=== PATIENT | male | born 1945 | race Caucasian/White ===

== ENCOUNTER 2024-07-11 16:38 | Inpatient (IN) | payer MEDICARE, OTHER ==
[~2024-07-11] VITALS: Ht 167.6 cm; Wt 43.1 kg
[2024-07-11 17:26] LABS: BASOPHILS % (AUTO) 0.5 % (0.0-2.0); EOSINOPHILS # (AUTO) 0.2 K/uL (0.0-0.7); EOSINOPHILS % (AUTO) 2.8 % (0.0-6.0); HEMATOCRIT 34 % (39-51); HEMOGLOBIN 10.8 g/dL (13.5-17.5); LYMPHOCYTES # (AUTO) 0.5 K/uL (0.8-4.8); LYMPHOCYTES % (AUTO) 7.8 % (20.0-44.0); MEAN CORPUSCULAR HEMOGLOBIN 28 PG (26.0-33.0); MEAN CORPUSCULAR HGB CONC 32 g/dl (31.0-36.0); MEAN CORPUSCULAR VOLUME 86 fL (80-96); MONOCYTES # (AUTO) 0.7 K/uL (0.1-1.30); MONOCYTES % (AUTO) 11.8 % (2.0-12.0); NEUTROPHILS # (AUTO) 4.7 K/uL (1.8-8.9); NEUTROPHILS % (AUTO) 77.1 % (43.0-81.0); PLATELET COUNT (AUTO) 343 K/uL (150-450); RED BLOOD CELL COUNT(AUTO) 3.92 MIL/uL (4.5-6.0); RED CELL DISTRIBUTION WIDTH 15.8 % (11.5-15.0); WHITE BLOOD COUNT (AUTO) 6.2 K/uL (4.3-11.0)
[2024-07-11 17:33] LABS: CALCIUM, SERUM 8.9 mg/dL (8.5-10.1); CREATININE 0.7 mg/dL (0.6-1.3); POTASSIUM 4.3 mmol/L (3.5-5.1)
[2024-07-11] MEDS ORDERED: MORP15TA PO (18:36)
[2024-07-11] MEDS ORDERED: PRED5TAB PO (18:36)
[2024-07-11] MEDS ORDERED: DULO30CA52 PO (18:36)
[2024-07-11] MEDS ORDERED: FURO40TA5 PO (18:36)
[2024-07-11] MEDS ORDERED: DONE5TAB34 PO (18:36)
[2024-07-11] MEDS ORDERED: HEPA50008 SQ (18:36)
[2024-07-11] MEDS ORDERED: CLOP75TA15 PO (18:36)
[2024-07-11] MEDS ORDERED: NA P133E RC (18:36)
[2024-07-11] MEDS ORDERED: TRAM50TA2 PO (18:36)
[2024-07-11] MEDS ORDERED: OLOP2.5D6 LEFTEYE (18:36)
[2024-07-11] MEDS ORDERED: ATOR20TA PO (18:36)
[2024-07-11] MEDS ORDERED: AMIN30LI66 PO (18:36)
[2024-07-11] MEDS ORDERED: LUBI24CA5 PO (18:36)
[2024-07-11] MEDS ORDERED: FLUT1BLS IH (18:36)
[2024-07-11] MEDS ORDERED: ZINC220C6 PO (18:36)
[2024-07-11] MEDS ORDERED: MORP30TA PO (18:36)
[2024-07-11] MEDS ORDERED: ASCO500T10 PO (18:36)
[2024-07-11] MEDS ORDERED: ASPI-1169 PO (18:36)
[2024-07-11] MEDS ORDERED: POLY17PO4 PO (18:36)
[2024-07-11] MEDS ORDERED: NEBI5TAB8 PO (18:36)
[2024-07-11] MEDS ORDERED: HYDR-500 PO (18:36)
[2024-07-11] MEDS ORDERED: PANT40TA2 PO (18:36)
[2024-07-11] MEDS ORDERED: LACT1CAP7 PO (18:36)
[2024-07-11] MEDS ORDERED: MULT-213 PO (18:36)
[2024-07-11] MEDS ORDERED: SPIR25TA6 PO (18:36)
[2024-07-11] MEDS ORDERED: BISA5TAB10 PO (18:36)
[2024-07-11] MEDS ORDERED: IPRA3AMP23 IH (18:36)
[2024-07-11] MEDS ORDERED: ACET325T53 PO (18:36)
[2024-07-11] MEDS ORDERED: ERGO500093 PO (18:36)
[2024-07-11] MEDS ORDERED: CALC-261 PO (18:36)
[2024-07-11] MEDS ORDERED: ZINC56.713 TP (18:36)
[2024-07-11] MEDS ORDERED: methylPREDNISolone SOD SUCC 125 MG/2ML VIAL IV ONE (19:00)
[2024-07-11] MEDS ORDERED: methylPREDNISolone SOD SUCC 125 MG/2ML VIAL ONE (19:05)
[2024-07-11] MEDS ORDERED: methylPREDNISolone SOD SUCC 40 MG/ML VIAL ONE (19:10)
[2024-07-11] MEDS: methylPREDNISolone SOD SUCC 40 MG/ML VIAL IV ONE (19:14)
[2024-07-11] MEDS ORDERED: CEFTRIAXONE 1GM BAG (ER ONLY) 50 ML IV ONE (19:15)
[2024-07-11] MEDS: CEFTRIAXONE 1 G in IV D5W 50 ML IV ONE (19:20)
[2024-07-11 19:31] LABS: ABG BASE EXCESS 8.2 mmol/L (-2.0-3.0); ABG OXYGEN SATURATION 92.3 % (94.0-98.0); ABG PCO2 58.1 mmHg (35.0-48.0); ABG PH 7.393 (7.350-7.450); ABG PO2 66.3 mmHg (83.0-108.0); ABG TOTAL HEMOGLOBIN 10.8 G/dL (13.5-17.5); COHb 0.3 % (0.5-1.5); MetHb 0.1 % (0.0-1.5); O2Hb 91.9 % (94.0-97.0); SITE, ABG RIGHT RADIAL
[2024-07-11 20:02] LABS: LACTIC ACID 0.7 mmol/L (0.4-2.0)
[2024-07-11] MEDS ORDERED: MAGNESIUM HYDROXIDE 30 ML UDC PO PRN (21:30)
[2024-07-11] MEDS ORDERED: ONDANSETRON HCL/PF 4 MG/2 ML VIAL IVP PRN (21:30)
[2024-07-11] MEDS ORDERED: ACETAMINOPHEN 325 MG TABLET PO PRN (21:30)
[2024-07-11] MEDS ORDERED: Z GUARD REMEDY 4 OZ OINT TP PRN (21:30)
[2024-07-11 21:59] LABS: IRON, SERUM 33 ug/dl (50-175); TOTAL IRON BINDING CAPACITY 225 ug/dl (250-450)
[2024-07-11] MEDS ORDERED: hydrOXYzine 10 MG TABLET PO PRN (22:00)
[2024-07-11 22:12] LABS: FERRITIN 158 ng/mL (8-388)
[2024-07-11 22:20] VITALS: BP 150/67; TEMP 97.9; O2SAT 90
[2024-07-11] MEDS: DOXYCYCLINE HYCLATE (100 MG) 100 MG TABLET PO SCH (23:29)
[2024-07-11] MEDS: DONEPEZIL 5 MG TABLET PO SCH (23:29)
[2024-07-11] MEDS: ATORVASTATIN 10 MG TABLET PO SCH (23:29)
[2024-07-12] VITALS (14 sets, daily range): BP systolic 98–132; BP diastolic 54–75; TEMP 97.3–98.2; O2SAT 89–98
[2024-07-12] MEDS: ALBUTEROL FS 2.5 MG/0.5 ML VIAL.NEB NEB SCH (02:05)
[2024-07-12] MEDS: IPRATROPIUM NEB FS 0.5 MG/2.5 ML AMPUL.NEB NEB SCH (02:05)
[2024-07-12] MEDS: methylPREDNISolone SOD SUCC 40 MG/ML VIAL IV SCH (05:12)
[2024-07-12 07:50] LABS: BASOPHILS % (AUTO) 0.1 % (0.0-2.0); EOSINOPHILS % (AUTO) 0.1 % (0.0-6.0); HEMATOCRIT 33 % (39-51); HEMOGLOBIN 10.9 g/dL (13.5-17.5); LYMPHOCYTES # (AUTO) 0.2 K/uL (0.8-4.8); LYMPHOCYTES % (AUTO) 4.7 % (20.0-44.0); MEAN CORPUSCULAR HEMOGLOBIN 28 PG (26.0-33.0); MEAN CORPUSCULAR HGB CONC 33 g/dl (31.0-36.0); MEAN CORPUSCULAR VOLUME 85 fL (80-96); MONOCYTES # (AUTO) 0.1 K/uL (0.1-1.30); MONOCYTES % (AUTO) 2.3 % (2.0-12.0); NEUTROPHILS # (AUTO) 4.1 K/uL (1.8-8.9); NEUTROPHILS % (AUTO) 92.8 % (43.0-81.0); PLATELET COUNT (AUTO) 317 K/uL (150-450); RED BLOOD CELL COUNT(AUTO) 3.93 MIL/uL (4.5-6.0); RED CELL DISTRIBUTION WIDTH 15.7 % (11.5-15.0); WHITE BLOOD COUNT (AUTO) 4.4 K/uL (4.3-11.0)
[2024-07-12 08:50] LABS: CALCIUM, SERUM 8.6 mg/dL (8.5-10.1); CREATININE 0.7 mg/dL (0.6-1.3); PHOSPHORUS 3.7 mg/dL (2.5-4.9); POTASSIUM 3.9 mmol/L (3.5-5.1)
[2024-07-12] MEDS ORDERED: OLOPATADINE HCL LEFTEYE SCH (09:00)
[2024-07-12] MEDS ORDERED: Medication Not On Formulary EA (Lubiprostone (Amitiza) 24 MCG) PO SCH (09:00)
[2024-07-12] MEDS: BUDESONIDE RESPULE INH 0.5 MG/2 ML AMPUL.NEB NEB SCH (09:00)
[2024-07-12] MEDS: SPIRONOLACTONE 25 MG TABLET PO SCH (10:09)
[2024-07-12] MEDS: ASPIRIN 81 MG TAB.CHEW PO SCH (10:09)
[2024-07-12] MEDS: PANTOPRAZOLE 40 MG VIAL IV SCH (10:09)
[2024-07-12] MEDS: DULOXETINE HCL 30 MG CAPSULE.DR PO SCH (10:10)
[2024-07-12] MEDS: CALCIUM CARB 600MG /VIT D 1 EACH TABLET PO SCH (10:10)
[2024-07-12] MEDS: ACIDOPHILUS/BULGARICUS 1 EACH TAB.CHEW PO SCH (10:10)
[2024-07-12] MEDS: FUROSEMIDE 40 MG TABLET PO SCH (10:10)
[2024-07-12] MEDS: MULTIVIT W/MINERALS 1 TAB TABLET PO SCH (10:11)
[2024-07-12] MEDS: METOPROLOL TARTRATE 25 MG TABLET PO SCH (10:11)
[2024-07-12] MEDS: ASCORBIC ACID 500 MG TABLET PO SCH (10:12)
[2024-07-12] MEDS: ZINC SULFATE 220 MG CAPSULE PO SCH (10:12)
[2024-07-12] MEDS: BISACODYL (5 MG) 5 MG TABLET.DR PO PRN (10:15)
[2024-07-12] MEDS: HEPARIN SODIUM, PORCINE 5000 UNITS/1 ML VIAL SQ SCH (10:15)
[2024-07-12] MEDS: CLOPIDOGREL BISULFATE 75 MG TABLET PO SCH (10:15)
[2024-07-12] MEDS: TRAMADOL HCL 50 MG TABLET PO PRN (10:16)
[2024-07-12] MEDS: POLYETHYLENE GLYCOL 3350 17 GM POWD.PACK PO PRN (10:16)
[2024-07-12] MEDS: NA PHOS,M-B/NA PHOS,DI-BA 1 EA ENEMA RC PRN (10:16)
[2024-07-12] MEDS: CEFTRIAXONE 1 G in IV D5W 50 ML IV SCH (20:09)
[2024-07-13] VITALS (8 sets, daily range): BP systolic 107–122; BP diastolic 57–74; TEMP 97.5–98.6; O2SAT 91–99
[2024-07-13 07:04] LABS: BASOPHILS % (AUTO) 0.1 % (0.0-2.0); HEMATOCRIT 32 % (39-51); HEMOGLOBIN 10.4 g/dL (13.5-17.5); LYMPHOCYTES # (AUTO) 0.3 K/uL (0.8-4.8); LYMPHOCYTES % (AUTO) 3.7 % (20.0-44.0); MEAN CORPUSCULAR HEMOGLOBIN 27 PG (26.0-33.0); MEAN CORPUSCULAR HGB CONC 33 g/dl (31.0-36.0); MEAN CORPUSCULAR VOLUME 84 fL (80-96); MONOCYTES # (AUTO) 0.5 K/uL (0.1-1.30); MONOCYTES % (AUTO) 5.2 % (2.0-12.0); PLATELET COUNT (AUTO) 348 K/uL (150-450); RED BLOOD CELL COUNT(AUTO) 3.81 MIL/uL (4.5-6.0); RED CELL DISTRIBUTION WIDTH 15.5 % (11.5-15.0); WHITE BLOOD COUNT (AUTO) 8.8 K/uL (4.3-11.0)
[2024-07-13 07:20] LABS: CALCIUM, SERUM 8.7 mg/dL (8.5-10.1); CREATININE 0.6 mg/dL (0.6-1.3); POTASSIUM 3.8 mmol/L (3.5-5.1)
[2024-07-13] MEDS: PROSOURCE / PROSTAT (PYXIS) 30 ML UDC PO SCH (09:41)
[2024-07-13] MEDS: PANTOPRAZOLE 40 MG/PACK PACK PO SCH (09:49)
[2024-07-13] MEDS: IPRATROPIUM NEB FS 0.5 MG/2.5 ML AMPUL.NEB NEB SCH (13:30)
[2024-07-14] VITALS (10 sets, daily range): BP systolic 118–127; BP diastolic 57–74; TEMP 97.5–98.6; O2SAT 94–97
[2024-07-14 06:02] LABS: BASOPHILS % (AUTO) 0.1 % (0.0-2.0); HEMATOCRIT 34 % (39-51); LYMPHOCYTES # (AUTO) 0.3 K/uL (0.8-4.8); LYMPHOCYTES % (AUTO) 4.1 % (20.0-44.0); MEAN CORPUSCULAR HEMOGLOBIN 27 PG (26.0-33.0); MEAN CORPUSCULAR HGB CONC 33 g/dl (31.0-36.0); MEAN CORPUSCULAR VOLUME 84 fL (80-96); MONOCYTES # (AUTO) 0.3 K/uL (0.1-1.30); MONOCYTES % (AUTO) 4.3 % (2.0-12.0); NEUTROPHILS # (AUTO) 7.5 K/uL (1.8-8.9); NEUTROPHILS % (AUTO) 91.5 % (43.0-81.0); PLATELET COUNT (AUTO) 381 K/uL (150-450); RED BLOOD CELL COUNT(AUTO) 4.02 MIL/uL (4.5-6.0); RED CELL DISTRIBUTION WIDTH 15.9 % (11.5-15.0); WHITE BLOOD COUNT (AUTO) 8.2 K/uL (4.3-11.0)
[2024-07-14 06:23] LABS: CALCIUM, SERUM 9.1 mg/dL (8.5-10.1); CREATININE 0.6 mg/dL (0.6-1.3); POTASSIUM 4.1 mmol/L (3.5-5.1)
[2024-07-15] VITALS (12 sets, daily range): BP systolic 116–129; BP diastolic 65–77; TEMP 97.3–98.2; O2SAT 91–99
[2024-07-15 06:16] LABS: BASOPHILS % (AUTO) 0.1 % (0.0-2.0); HEMATOCRIT 34 % (39-51); HEMOGLOBIN 10.9 g/dL (13.5-17.5); LYMPHOCYTES # (AUTO) 0.2 K/uL (0.8-4.8); MEAN CORPUSCULAR HEMOGLOBIN 27 PG (26.0-33.0); MEAN CORPUSCULAR HGB CONC 32 g/dl (31.0-36.0); MEAN CORPUSCULAR VOLUME 84 fL (80-96); MONOCYTES # (AUTO) 0.4 K/uL (0.1-1.30); MONOCYTES % (AUTO) 3.5 % (2.0-12.0); NEUTROPHILS # (AUTO) 11.5 K/uL (1.8-8.9); NEUTROPHILS % (AUTO) 94.4 % (43.0-81.0); PLATELET COUNT (AUTO) 353 K/uL (150-450); RED BLOOD CELL COUNT(AUTO) 4.05 MIL/uL (4.5-6.0); WHITE BLOOD COUNT (AUTO) 12.2 K/uL (4.3-11.0)
[2024-07-15 06:36] LABS: CALCIUM, SERUM 8.6 mg/dL (8.5-10.1); CREATININE 0.5 mg/dL (0.6-1.3); POTASSIUM 4.2 mmol/L (3.5-5.1)
[2024-07-15] MEDS: IPRATROPIUM NEB FS 0.5 MG/2.5 ML AMPUL.NEB NEB ONE (07:11)
[2024-07-15] MEDS: methylPREDNISolone SOD SUCC 40 MG/ML VIAL IV SCH (16:43)
[2024-07-15] MEDS: MAG HYDROX/AL HYDROX/SIMETH 30 ML UDC PO PRN (16:50)
[2024-07-16] VITALS (11 sets, daily range): BP systolic 126–140; BP diastolic 68–87; TEMP 97.9–98.2; O2SAT 92–99
[2024-07-16 07:26] LABS: CALCIUM, SERUM 8.8 mg/dL (8.5-10.1); CREATININE 0.4 mg/dL (0.6-1.3); POTASSIUM 3.7 mmol/L (3.5-5.1)
[2024-07-16] MEDS: PANTOPRAZOLE 40 MG/PACK PACK PO SCH (07:45)
[2024-07-16 08:50] LABS: EOSINOPHILS % (AUTO) 0.1 % (0.0-6.0); HEMATOCRIT 37 % (39-51); HEMOGLOBIN 11.8 g/dL (13.5-17.5); LYMPHOCYTES # (AUTO) 0.3 K/uL (0.8-4.8); LYMPHOCYTES % (AUTO) 2.9 % (20.0-44.0); MEAN CORPUSCULAR HEMOGLOBIN 28 PG (26.0-33.0); MEAN CORPUSCULAR HGB CONC 32 g/dl (31.0-36.0); MEAN CORPUSCULAR VOLUME 85 fL (80-96); MONOCYTES # (AUTO) 0.9 K/uL (0.1-1.30); MONOCYTES % (AUTO) 8.1 % (2.0-12.0); NEUTROPHILS # (AUTO) 9.4 K/uL (1.8-8.9); NEUTROPHILS % (AUTO) 88.9 % (43.0-81.0); PLATELET COUNT (AUTO) 387 K/uL (150-450); RED BLOOD CELL COUNT(AUTO) 4.29 MIL/uL (4.5-6.0); RED CELL DISTRIBUTION WIDTH 16.1 % (11.5-15.0); WHITE BLOOD COUNT (AUTO) 10.6 K/uL (4.3-11.0)
[2024-07-16] MEDS ORDERED: PANTOPRAZOLE 40 MG/PACK PACK PO SCH (09:00)
[2024-07-16] MEDS ORDERED: ZOLPIDEM TARTRATE 5 MG TABLET PO PRN (12:00)
[2024-07-17 07:42] LABS: BASOPHILS % (AUTO) 0.1 % (0.0-2.0); EOSINOPHILS # (AUTO) 0.1 K/uL (0.0-0.7); EOSINOPHILS % (AUTO) 0.5 % (0.0-6.0); HEMATOCRIT 34 % (39-51); HEMOGLOBIN 11.1 g/dL (13.5-17.5); LYMPHOCYTES # (AUTO) 0.5 K/uL (0.8-4.8); LYMPHOCYTES % (AUTO) 5.2 % (20.0-44.0); MEAN CORPUSCULAR HEMOGLOBIN 28 PG (26.0-33.0); MEAN CORPUSCULAR HGB CONC 32 g/dl (31.0-36.0); MEAN CORPUSCULAR VOLUME 86 fL (80-96); MONOCYTES # (AUTO) 1.1 K/uL (0.1-1.30); MONOCYTES % (AUTO) 10.8 % (2.0-12.0); NEUTROPHILS # (AUTO) 8.3 K/uL (1.8-8.9); NEUTROPHILS % (AUTO) 83.4 % (43.0-81.0); PLATELET COUNT (AUTO) 307 K/uL (150-450); RED BLOOD CELL COUNT(AUTO) 3.98 MIL/uL (4.5-6.0); RED CELL DISTRIBUTION WIDTH 15.7 % (11.5-15.0); WHITE BLOOD COUNT (AUTO) 9.9 K/uL (4.3-11.0)
[2024-07-17 08:00] VITALS: BP 137/56; TEMP 98.1; O2SAT 94
[2024-07-17] MEDS: methylPREDNISolone SOD SUCC 40 MG/ML VIAL IV SCH (08:46)
[2024-07-17 16:00] VITALS: BP 112/66; TEMP 98.1; O2SAT 96
[2024-07-17 19:50] VITALS: O2SAT 95
[2024-07-17 20:00] VITALS: BP 125/65; TEMP 98.6; O2SAT 95
[2024-07-17 20:10] VITALS: O2SAT 92
[2024-07-18 06:59] LABS: BASOPHILS % (AUTO) 0.1 % (0.0-2.0); EOSINOPHILS # (AUTO) 0.1 K/uL (0.0-0.7); EOSINOPHILS % (AUTO) 0.8 % (0.0-6.0); HEMATOCRIT 36 % (39-51); HEMOGLOBIN 11.6 g/dL (13.5-17.5); LYMPHOCYTES # (AUTO) 0.5 K/uL (0.8-4.8); LYMPHOCYTES % (AUTO) 4.2 % (20.0-44.0); MEAN CORPUSCULAR HEMOGLOBIN 27 PG (26.0-33.0); MEAN CORPUSCULAR HGB CONC 32 g/dl (31.0-36.0); MEAN CORPUSCULAR VOLUME 85 fL (80-96); MONOCYTES # (AUTO) 1.1 K/uL (0.1-1.30); NEUTROPHILS # (AUTO) 10.1 K/uL (1.8-8.9); NEUTROPHILS % (AUTO) 85.9 % (43.0-81.0); PLATELET COUNT (AUTO) 345 K/uL (150-450); RED BLOOD CELL COUNT(AUTO) 4.27 MIL/uL (4.5-6.0); RED CELL DISTRIBUTION WIDTH 15.9 % (11.5-15.0); WHITE BLOOD COUNT (AUTO) 11.7 K/uL (4.3-11.0)
[2024-07-18 07:18] LABS: ALBUMIN 2.6 g/dL (3.4-5.0); BILIRUBIN,TOTAL 0.6 mg/dL (0.2-1.0); CALCIUM, SERUM 8.7 mg/dL (8.5-10.1); CREATININE 0.4 mg/dL (0.6-1.3); MAGNESIUM 2.3 mg/dL (1.8-2.4); PHOSPHORUS 2.9 mg/dL (2.5-4.9); POTASSIUM 4.1 mmol/L (3.5-5.1); TOTAL PROTEIN, SERUM 6.8 g/dL (6.4-8.2)
[2024-07-18 20:00] VITALS: BP 121/63; TEMP 98.1; O2SAT 95
[2024-07-19] MEDS: ALBUTEROL FS 2.5 MG/3 ML VIAL.NEB NEB ONE (07:50)
[2024-07-19 13:58] VITALS: O2SAT 95
[2024-07-19 19:56] VITALS: O2SAT 93
[2024-07-19 20:00] VITALS: BP 128/67; TEMP 98.6; O2SAT 91
[2024-07-20] VITALS (7 sets, daily range): BP systolic 100–119; BP diastolic 62–64; TEMP 97.7–98.2; O2SAT 90–98
[2024-07-21 07:52] VITALS: O2SAT 92
[2024-07-21 08:00] VITALS: BP 115/51; TEMP 98.1; O2SAT 94
[2024-07-21 08:10] VITALS: O2SAT 95
[2024-07-21 09:04] VITALS: BP 115/51
[2024-07-21 14:00] VITALS: O2SAT 94
[2024-07-21 14:20] VITALS: O2SAT 96
== END 2024-07-21 14:45 | DRG 177 ==
LOC: ER 16:42 → TELE 21:59 → MED 07-16 12:04
DX: J15.69 Pneumonia due to other Gram-negative bacteria (principal); E43 Unspecified severe protein-calorie malnutrition; J96.21 Acute and chronic respiratory failure with hypoxia; J96.22 Acute and chronic respiratory failure with hypercapnia; J44.1 Chronic obstructive pulmonary disease with (acute) exacerbation; F01.53 Vascular dementia, unspecified severity, with mood disturbance; J44.0 Chronic obstructive pulmonary disease with (acute) lower respiratory infection; D62 Acute posthemorrhagic anemia; F01.518 Vascular dementia, unspecified severity, with other behavioral disturbance; F01.511 Vascular dementia, unspecified severity, with agitation; I48.20 Chronic atrial fibrillation, unspecified; R64 Cachexia; J84.9 Interstitial pulmonary disease, unspecified; J90 Pleural effusion, not elsewhere classified; Z20.822 Contact with and (suspected) exposure to COVID-19; K21.9 Gastro-esophageal reflux disease without esophagitis; N40.0 Benign prostatic hyperplasia without lower urinary tract symptoms; I25.10 Atherosclerotic heart disease of native coronary artery without angina pectoris; I10 Essential (primary) hypertension; E78.5 Hyperlipidemia, unspecified; Z85.118 Personal history of other malignant neoplasm of bronchus and lung; Z88.0 Allergy status to penicillin; Z92.21 Personal history of antineoplastic chemotherapy; F32.A Depression, unspecified; Z79.51 Long term (current) use of inhaled steroids; Z79.01 Long term (current) use of anticoagulants; Z79.02 Long term (current) use of antithrombotics/antiplatelets; Z79.82 Long term (current) use of aspirin; Z79.899 Other long term (current) drug therapy; G47.00 Insomnia, unspecified; L89.156 Pressure-induced deep tissue damage of sacral region; Z87.891 Personal history of nicotine dependence; L89.896 Pressure-induced deep tissue damage of other site
CPT/HCPCS: 36415; 36600; 71045-TC; 71250-TC; 80048-TC; 80053-TC; 82728-TC; 82803-TC; 83540-TC; 83605-TC; 83735-TC; 83880; 84100-TC; 84484-TC; 85025-TC; 87040-TC; 87081-TC; 92526; 92611-TC; 93307-TC; 94760-TC; 94761-TC; 94799-TC; 97110-TC; 97530-TC; A4223; G0378; J0696; J1644; J2470; J2919; J7050; J7060; Q0177

== ENCOUNTER 2024-08-08 01:27 | Inpatient (IN) | payer MEDICARE, OTHER ==
[2024-08-08] VITALS (11 sets, daily range): BP systolic 94–112; BP diastolic 51–63; TEMP 97.5–99.5; O2SAT 85–100
[~2024-08-08] VITALS: Ht 167.6 cm; Wt 42.2 kg
[~2024-08-08 01:27] MED LIST: ACET325T53 PO; AMIN30LI66 PO; ASCO500T10 PO; ASPI-1169 PO; ATOR20TA PO; BISA5TAB10 PO; CALC-261 PO; CLOP75TA15 PO; DONE5TAB34 PO; DULO30CA52 PO; ERGO500093 PO; FLUT1BLS IH; FURO40TA5 PO; HEPA50008 SQ; HYDR-500 PO; IPRA3AMP23 IH; LACT1CAP7 PO; LUBI24CA5 PO; MORP15TA PO; MORP30TA PO; MULT-213 PO; NA P133E RC; NEBI5TAB8 PO; OLOP2.5D6 LEFTEYE; PANT40TA2 PO; POLY17PO4 PO; PRED5TAB PO; SPIR25TA6 PO; TRAM50TA2 PO; ZINC220C6 PO; ZINC56.713 TP
[2024-08-08 01:50] LABS: BASOPHILS # (AUTO) 0.1 K/uL (0.0-0.2); BASOPHILS % (AUTO) 0.4 % (0.0-2.0); EOSINOPHILS # (AUTO) 0.3 K/uL (0.0-0.7); EOSINOPHILS % (AUTO) 2.5 % (0.0-6.0); HEMATOCRIT 35 % (39-51); HEMOGLOBIN 11.1 g/dL (13.5-17.5); LYMPHOCYTES # (AUTO) 1.8 K/uL (0.8-4.8); LYMPHOCYTES % (AUTO) 13.4 % (20.0-44.0); MEAN CORPUSCULAR HEMOGLOBIN 27 PG (26.0-33.0); MEAN CORPUSCULAR HGB CONC 31 g/dl (31.0-36.0); MEAN CORPUSCULAR VOLUME 86 fL (80-96); MONOCYTES # (AUTO) 1.7 K/uL (0.1-1.30); MONOCYTES % (AUTO) 13.3 % (2.0-12.0); NEUTROPHILS # (AUTO) 9.2 K/uL (1.8-8.9); NEUTROPHILS % (AUTO) 70.4 % (43.0-81.0); PLATELET COUNT (AUTO) 542 K/uL (150-450); RED BLOOD CELL COUNT(AUTO) 4.11 MIL/uL (4.5-6.0); RED CELL DISTRIBUTION WIDTH 16.1 % (11.5-15.0); WHITE BLOOD COUNT (AUTO) 13.1 K/uL (4.3-11.0)
[2024-08-08] MEDS: ALBUTEROL FS 2.5 MG/3 ML VIAL.NEB CONTNEB ONE (01:52)
[2024-08-08] MEDS: IPRATROPIUM NEB FS 0.5 MG/2.5 ML AMPUL.NEB NEB ONE (01:52)
[2024-08-08] MEDS ORDERED: ALBUTEROL FS 2.5 MG/3 ML VIAL.NEB ONE (01:54)
[2024-08-08] MEDS ORDERED: IPRATROPIUM NEB FS 0.5 MG/2.5 ML AMPUL.NEB ONE (01:54)
[2024-08-08] MEDS ORDERED: methylPREDNISolone SOD SUCC 125 MG/2ML VIAL ONE (01:58)
[2024-08-08] MEDS ORDERED: Magnesium 1GM/D5W 100ML PREMIX 200 ML IV ONE (01:58)
[2024-08-08] MEDS ORDERED: MEROPENEM 1 G VIAL IV ONE (01:58)
[2024-08-08 02:05] LABS: INR 1.03 (0.91-1.10); PARTIAL THROMBOPLASTIN TIME 27.2 SEC (24.3-34.3); PROTHROMBIN TIME 10.9 SECS (9.2-11.1)
[2024-08-08 02:08] LABS: ALANINE AMINOTRANSFERASE 17 U/L (12-78); ALBUMIN 3.1 g/dL (3.4-5.0); ALKALINE PHOSPHATASE 93 U/L (46-116); ASPARTATE AMINOTRANSFERASE 40 U/L (15-37); BILIRUBIN,DIRECT 0.1 mg/dL (0.0-0.2); BILIRUBIN,TOTAL 0.4 mg/dL (0.2-1.0); CALCIUM, SERUM 9.2 mg/dL (8.5-10.1); CHLORIDE 96 mmol/L (98-107); CREATININE 0.6 mg/dL (0.6-1.3); GLUCOSE 226 mg/dL (74-106); SODIUM SERUM 134 mmol/L (136-145); TOTAL PROTEIN, SERUM 7.9 g/dL (6.4-8.2); UREA NITROGEN, BLOOD 14 mg/dL (7-18)
[2024-08-08 02:09] LABS: LACTIC ACID 1.1 mmol/L (0.4-2.0)
[2024-08-08] MEDS: IV NS 0.9% 1,000 ML BAG IV ONE (02:13)
[2024-08-08] MEDS: methylPREDNISolone SOD SUCC 125 MG/2ML VIAL IV ONE (02:14)
[2024-08-08] MEDS: Magnesium 1GM/D5W 100ML PREMIX 200 ML IV ONE (02:14)
[2024-08-08] MEDS: MEROPENEM 1 G in IV NS 0.9% 100 ML IV ONE (02:15)
[2024-08-08 02:19] LABS: CARBON DIOXIDE 41 mmol/L (21-32)
[2024-08-08 02:21] LABS: APPEARANCE,URINE CLEAR (CLEAR); BILIRUBIN,URINE NEGATIVE (NEGATIVE); BLOOD, URINE TRACE-INTA Ery/uL (NEGATIVE); COLOR,URINE YELLOW (YELLOW); KETONES,URINE NEGATIVE (NEGATIVE); LEUKOCYTE ESTERASE ,URINE TRACE (NEGATIVE); NITRITE, URINE NEGATIVE (NEGATIVE); PROTEIN,URINE NEGATIVE (NEGATIVE); UGLUCOSE NEGATIVE (NEGATIVE); UROBILINOGEN,URINE 0.2 EU/dL (0.2)
[2024-08-08 02:31] LABS: ADD URINE CULTURE NO; BACTERIA,URINE Rare /HPF (None Seen); SQUAMOUS EPITHELIAL CELL,UR Few /HPF (None Seen)
[2024-08-08] MEDS: VANCOMYCIN 1 GM in IV D5W 250 ML IV ONE (03:00)
[2024-08-08] MEDS ORDERED: AZITHROMYCIN 500 MG VIAL ONE (03:01)
[2024-08-08] MEDS ORDERED: VANCOMYCIN 1 GM /D5W 250 ML PB IV ONE (03:01)
[2024-08-08 03:53] LABS: ABG BASE EXCESS -4.1 mmol/L (-2.0-3.0); ABG PCO2 67.1 mmHg (35.0-48.0); ABG PH 7.183 (7.350-7.450); ABG PO2 238.1 mmHg (83.0-108.0); ABG TOTAL HEMOGLOBIN 9.5 G/dL (13.5-17.5); COHb 0.2 % (0.5-1.5); MetHb 0.4 % (0.0-1.5); O2Hb 98.4 % (94.0-97.0); SITE, ABG LEFT BRACHIAL
[2024-08-08] MEDS: AZITHROMYCIN 500 MG in IV D5W 250 ML IV ONE (03:57)
[2024-08-08] MEDS ORDERED: IPRATROPIUM NEB FS 0.5 MG/2.5 ML AMPUL.NEB NEB PRN (04:00)
[2024-08-08] MEDS: ENOXAPARIN SODIUM 40 MG/0.4 ML DISP.SYRIN SQ SCH (04:00)
[2024-08-08] MEDS ORDERED: ALBUTEROL FS 2.5 MG/0.5 ML VIAL.NEB NEB PRN (04:00)
[2024-08-08] MEDS ORDERED: ACETAMINOPHEN 325 MG TABLET PO PRN (04:00)
[2024-08-08] MEDS ORDERED: MAG HYDROX/AL HYDROX/SIMETH 30 ML UDC PO PRN (04:00)
[2024-08-08] MEDS ORDERED: ONDANSETRON HCL/PF 4 MG/2 ML VIAL IVP PRN (04:00)
[2024-08-08 05:23] LABS: ABG OXYGEN SATURATION 99.4 % (94.0-98.0); ABG PCO2 75.9 mmHg (35.0-48.0); ABG PH 7.191 (7.350-7.450); ABG PO2 338.6 mmHg (83.0-108.0); ABG TOTAL HEMOGLOBIN 10.7 G/dL (13.5-17.5); COHb 0.1 % (0.5-1.5); MetHb 0.2 % (0.0-1.5); O2Hb 99.1 % (94.0-97.0); SITE, ABG RIGHT BRACHIAL
[2024-08-08 06:22] LABS: ABG BASE EXCESS 2.9 mmol/L (-2.0-3.0); ABG OXYGEN SATURATION 99.1 % (94.0-98.0); ABG PCO2 69.5 mmHg (35.0-48.0); ABG PO2 233.6 mmHg (83.0-108.0); ABG TOTAL HEMOGLOBIN 10.6 G/dL (13.5-17.5); COHb 0.3 % (0.5-1.5); MetHb 0.1 % (0.0-1.5); O2Hb 98.7 % (94.0-97.0); SITE, ABG LEFT BRACHIAL
[2024-08-08] MEDS ORDERED: BUDE0.5A4 NEB (07:30)
[2024-08-08] MEDS ORDERED: CALC-903 PO (07:30)
[2024-08-08] MEDS: PANTOPRAZOLE 40 MG VIAL IV SCH (09:13)
[2024-08-08] MEDS: methylPREDNISolone SOD SUCC 125 MG/2ML VIAL IV SCH (09:35)
[2024-08-08] MEDS: LEVOFLOXACIN 750 MG /D5W 150ML 150 ML IV SCH (10:46)
[2024-08-08 11:19] LABS: ABG BASE EXCESS 6.7 mmol/L (-2.0-3.0); ABG OXYGEN SATURATION 91.6 % (94.0-98.0); ABG PCO2 57.4 mmHg (35.0-48.0); ABG PO2 63.8 mmHg (83.0-108.0); ABG TOTAL HEMOGLOBIN 10.9 G/dL (13.5-17.5); COHb 0.3 % (0.5-1.5); MetHb 0.1 % (0.0-1.5); O2Hb 91.2 % (94.0-97.0); SITE, ABG RIGHT RADIAL
[2024-08-08] MEDS ORDERED: Medication Not On Formulary EA (Ipratropium/Albuterol Sulfate (Duoneb 2.5-0.5 Mg/3 Ml So IH SCH (12:00)
[2024-08-08] MEDS: ALBUTEROL FS 2.5 MG/0.5 ML VIAL.NEB NEB SCH (12:08)
[2024-08-08] MEDS: IPRATROPIUM NEB FS 0.5 MG/2.5 ML AMPUL.NEB NEB SCH (12:08)
[2024-08-08] MEDS: TRAMADOL HCL 50 MG TABLET PO PRN (13:44)
[2024-08-08] MEDS: BUDESONIDE RESPULE INH 0.5 MG/2 ML AMPUL.NEB NEB SCH (20:18)
[2024-08-08] MEDS: DONEPEZIL 5 MG TABLET PO SCH (21:14)
[2024-08-08] MEDS: ATORVASTATIN 10 MG TABLET PO SCH (21:14)
[2024-08-09] VITALS (14 sets, daily range): BP systolic 99–133; BP diastolic 56–84; TEMP 97.5–98; O2SAT 93–100
[2024-08-09 06:58] LABS: HEMATOCRIT 30 % (39-51); HEMOGLOBIN 9.8 g/dL (13.5-17.5); LYMPHOCYTES # (AUTO) 0.2 K/uL (0.8-4.8); LYMPHOCYTES % (AUTO) 3.4 % (20.0-44.0); MEAN CORPUSCULAR HEMOGLOBIN 28 PG (26.0-33.0); MEAN CORPUSCULAR HGB CONC 33 g/dl (31.0-36.0); MEAN CORPUSCULAR VOLUME 86 fL (80-96); MONOCYTES # (AUTO) 0.3 K/uL (0.1-1.30); MONOCYTES % (AUTO) 4.6 % (2.0-12.0); NEUTROPHILS # (AUTO) 6.5 K/uL (1.8-8.9); PLATELET COUNT (AUTO) 373 K/uL (150-450); RED CELL DISTRIBUTION WIDTH 15.8 % (11.5-15.0); WHITE BLOOD COUNT (AUTO) 7.1 K/uL (4.3-11.0)
[2024-08-09 07:34] LABS: CALCIUM, SERUM 9.2 mg/dL (8.5-10.1); CREATININE 0.7 mg/dL (0.6-1.3); MAGNESIUM 2.4 mg/dL (1.8-2.4); PHOSPHORUS 2.9 mg/dL (2.5-4.9); POTASSIUM 4.2 mmol/L (3.5-5.1)
[2024-08-09] MEDS: CALCIUM CARB 600MG /VIT D 1 EACH TABLET PO SCH (08:14)
[2024-08-09] MEDS: ACIDOPHILUS/BULGARICUS 1 EACH TAB.CHEW PO SCH (08:14)
[2024-08-09] MEDS: ZINC OXIDE 56.7 GM TUBE TP SCH (08:14)
[2024-08-09] MEDS: ASPIRIN 81 MG TAB.CHEW PO SCH (08:14)
[2024-08-09] MEDS: MAGNESIUM HYDROXIDE 30 ML UDC PO PRN (20:52)
[2024-08-10] VITALS (12 sets, daily range): BP systolic 119–132; BP diastolic 60–78; TEMP 97.7–98.2; O2SAT 94–100
[2024-08-10 06:37] LABS: HEMATOCRIT 31 % (39-51); HEMOGLOBIN 10.1 g/dL (13.5-17.5); LYMPHOCYTES # (AUTO) 0.2 K/uL (0.8-4.8); LYMPHOCYTES % (AUTO) 2.3 % (20.0-44.0); MEAN CORPUSCULAR HEMOGLOBIN 28 PG (26.0-33.0); MEAN CORPUSCULAR HGB CONC 33 g/dl (31.0-36.0); MEAN CORPUSCULAR VOLUME 85 fL (80-96); MONOCYTES # (AUTO) 0.5 K/uL (0.1-1.30); MONOCYTES % (AUTO) 5.1 % (2.0-12.0); NEUTROPHILS # (AUTO) 9.6 K/uL (1.8-8.9); NEUTROPHILS % (AUTO) 92.6 % (43.0-81.0); PLATELET COUNT (AUTO) 403 K/uL (150-450); RED BLOOD CELL COUNT(AUTO) 3.65 MIL/uL (4.5-6.0); RED CELL DISTRIBUTION WIDTH 16.4 % (11.5-15.0); WHITE BLOOD COUNT (AUTO) 10.4 K/uL (4.3-11.0)
[2024-08-10 07:17] LABS: CALCIUM, SERUM 8.7 mg/dL (8.5-10.1); CREATININE 0.6 mg/dL (0.6-1.3); POTASSIUM 3.7 mmol/L (3.5-5.1)
[2024-08-10] MEDS: PANTOPRAZOLE 40 MG/PACK PACK PO SCH (09:12)
[2024-08-10] MEDS: POLYETHYLENE GLYCOL 3350 17 GM POWD.PACK PO PRN (17:13)
[2024-08-11] VITALS (14 sets, daily range): BP systolic 116–150; BP diastolic 62–89; TEMP 97.3–98.2; O2SAT 92–100
[2024-08-11 07:13] LABS: HEMATOCRIT 30 % (39-51); HEMOGLOBIN 10.2 g/dL (13.5-17.5); LYMPHOCYTES # (AUTO) 0.2 K/uL (0.8-4.8); LYMPHOCYTES % (AUTO) 2.4 % (20.0-44.0); MEAN CORPUSCULAR HEMOGLOBIN 28 PG (26.0-33.0); MEAN CORPUSCULAR HGB CONC 33 g/dl (31.0-36.0); MEAN CORPUSCULAR VOLUME 85 fL (80-96); MONOCYTES # (AUTO) 0.4 K/uL (0.1-1.30); MONOCYTES % (AUTO) 4.5 % (2.0-12.0); NEUTROPHILS # (AUTO) 8.5 K/uL (1.8-8.9); NEUTROPHILS % (AUTO) 93.1 % (43.0-81.0); PLATELET COUNT (AUTO) 368 K/uL (150-450); RED BLOOD CELL COUNT(AUTO) 3.58 MIL/uL (4.5-6.0); WHITE BLOOD COUNT (AUTO) 9.1 K/uL (4.3-11.0)
[2024-08-11 07:18] LABS: CALCIUM, SERUM 8.4 mg/dL (8.5-10.1); CREATININE 0.5 mg/dL (0.6-1.3); POTASSIUM 3.7 mmol/L (3.5-5.1)
[2024-08-11] MEDS: NA PHOS,M-B/NA PHOS,DI-BA 1 EA ENEMA RC ONE (15:38)
[2024-08-12] VITALS (12 sets, daily range): BP systolic 114–150; BP diastolic 70–81; TEMP 97.7–98.1; O2SAT 94–100
[2024-08-12 07:30] LABS: HEMATOCRIT 33 % (39-51); HEMOGLOBIN 10.8 g/dL (13.5-17.5); LYMPHOCYTES # (AUTO) 0.2 K/uL (0.8-4.8); LYMPHOCYTES % (AUTO) 1.9 % (20.0-44.0); MEAN CORPUSCULAR HEMOGLOBIN 28 PG (26.0-33.0); MEAN CORPUSCULAR HGB CONC 32 g/dl (31.0-36.0); MEAN CORPUSCULAR VOLUME 85 fL (80-96); MONOCYTES # (AUTO) 0.4 K/uL (0.1-1.30); MONOCYTES % (AUTO) 4.5 % (2.0-12.0); NEUTROPHILS # (AUTO) 9.2 K/uL (1.8-8.9); NEUTROPHILS % (AUTO) 93.6 % (43.0-81.0); PLATELET COUNT (AUTO) 401 K/uL (150-450); RED BLOOD CELL COUNT(AUTO) 3.93 MIL/uL (4.5-6.0); RED CELL DISTRIBUTION WIDTH 15.6 % (11.5-15.0); WHITE BLOOD COUNT (AUTO) 9.8 K/uL (4.3-11.0)
[2024-08-12 07:32] LABS: CALCIUM, SERUM 8.8 mg/dL (8.5-10.1); CREATININE 0.7 mg/dL (0.6-1.3); POTASSIUM 3.6 mmol/L (3.5-5.1)
[2024-08-12] MEDS: TAMSULOSIN 0.4 MG CAP.SR.24H PO SCH (21:39)
[2024-08-12] MEDS: methylPREDNISolone SOD SUCC 125 MG/2ML VIAL IV SCH (21:42)
[2024-08-13] VITALS (9 sets, daily range): BP systolic 128–146; BP diastolic 70–85; TEMP 97.3–98.7; O2SAT 97–99
[2024-08-13 06:47] LABS: BASOPHILS % (AUTO) 0.2 % (0.0-2.0); EOSINOPHILS % (AUTO) 0.1 % (0.0-6.0); HEMATOCRIT 33 % (39-51); HEMOGLOBIN 10.9 g/dL (13.5-17.5); LYMPHOCYTES # (AUTO) 0.3 K/uL (0.8-4.8); LYMPHOCYTES % (AUTO) 2.4 % (20.0-44.0); MEAN CORPUSCULAR HEMOGLOBIN 28 PG (26.0-33.0); MEAN CORPUSCULAR HGB CONC 33 g/dl (31.0-36.0); MEAN CORPUSCULAR VOLUME 84 fL (80-96); MONOCYTES # (AUTO) 0.5 K/uL (0.1-1.30); MONOCYTES % (AUTO) 4.3 % (2.0-12.0); NEUTROPHILS # (AUTO) 11.7 K/uL (1.8-8.9); PLATELET COUNT (AUTO) 383 K/uL (150-450); RED BLOOD CELL COUNT(AUTO) 3.96 MIL/uL (4.5-6.0); RED CELL DISTRIBUTION WIDTH 16.2 % (11.5-15.0); WHITE BLOOD COUNT (AUTO) 12.5 K/uL (4.3-11.0)
[2024-08-13 07:00] LABS: CALCIUM, SERUM 8.6 mg/dL (8.5-10.1); CREATININE 0.5 mg/dL (0.6-1.3); POTASSIUM 3.9 mmol/L (3.5-5.1)
[2024-08-14] VITALS (10 sets, daily range): BP systolic 115–140; BP diastolic 69–82; TEMP 97.7–97.9; O2SAT 97–99
[2024-08-14 06:54] LABS: BASOPHILS % (AUTO) 0.1 % (0.0-2.0); HEMATOCRIT 35 % (39-51); HEMOGLOBIN 11.5 g/dL (13.5-17.5); LYMPHOCYTES # (AUTO) 0.3 K/uL (0.8-4.8); MEAN CORPUSCULAR HEMOGLOBIN 28 PG (26.0-33.0); MEAN CORPUSCULAR HGB CONC 33 g/dl (31.0-36.0); MEAN CORPUSCULAR VOLUME 85 fL (80-96); MONOCYTES # (AUTO) 0.7 K/uL (0.1-1.30); MONOCYTES % (AUTO) 4.8 % (2.0-12.0); NEUTROPHILS # (AUTO) 13.5 K/uL (1.8-8.9); NEUTROPHILS % (AUTO) 93.1 % (43.0-81.0); PLATELET COUNT (AUTO) 330 K/uL (150-450); RED BLOOD CELL COUNT(AUTO) 4.12 MIL/uL (4.5-6.0); WHITE BLOOD COUNT (AUTO) 14.5 K/uL (4.3-11.0)
[2024-08-14 06:57] LABS: CALCIUM, SERUM 8.6 mg/dL (8.5-10.1); CREATININE 0.4 mg/dL (0.6-1.3); POTASSIUM 3.6 mmol/L (3.5-5.1)
[2024-08-14] MEDS: NA PHOS,M-B/NA PHOS,DI-BA 1 EA ENEMA RC PRN (17:45)
[2024-08-15] VITALS (7 sets, daily range): BP systolic 106–137; BP diastolic 64–83; TEMP 97.2–98.2; O2SAT 95–98
[2024-08-16] VITALS (8 sets, daily range): BP systolic 119–128; BP diastolic 66–78; TEMP 97.2–98; O2SAT 94–100
[2024-08-16 06:48] LABS: HEMATOCRIT 35 % (39-51); HEMOGLOBIN 11.3 g/dL (13.5-17.5); LYMPHOCYTES # (AUTO) 0.3 K/uL (0.8-4.8); LYMPHOCYTES % (AUTO) 2.1 % (20.0-44.0); MEAN CORPUSCULAR HEMOGLOBIN 27 PG (26.0-33.0); MEAN CORPUSCULAR HGB CONC 32 g/dl (31.0-36.0); MEAN CORPUSCULAR VOLUME 86 fL (80-96); MONOCYTES # (AUTO) 0.4 K/uL (0.1-1.30); MONOCYTES % (AUTO) 3.3 % (2.0-12.0); NEUTROPHILS # (AUTO) 12.6 K/uL (1.8-8.9); NEUTROPHILS % (AUTO) 94.6 % (43.0-81.0); PLATELET COUNT (AUTO) 306 K/uL (150-450); RED BLOOD CELL COUNT(AUTO) 4.11 MIL/uL (4.5-6.0); RED CELL DISTRIBUTION WIDTH 16.1 % (11.5-15.0); WHITE BLOOD COUNT (AUTO) 13.3 K/uL (4.3-11.0)
[2024-08-16 07:42] LABS: ALANINE AMINOTRANSFERASE 20 U/L (12-78); ALBUMIN 2.4 g/dL (3.4-5.0); ALKALINE PHOSPHATASE 68 U/L (46-116); ASPARTATE AMINOTRANSFERASE 39 U/L (15-37); BILIRUBIN,TOTAL 0.6 mg/dL (0.2-1.0); CALCIUM, SERUM 8.3 mg/dL (8.5-10.1); CARBON DIOXIDE 37 mmol/L (21-32); CHLORIDE 95 mmol/L (98-107); CREATININE 0.5 mg/dL (0.6-1.3); GLUCOSE 147 mg/dL (74-106); PHOSPHORUS 3.4 mg/dL (2.5-4.9); POTASSIUM 4.1 mmol/L (3.5-5.1); SODIUM SERUM 135 mmol/L (136-145); TOTAL PROTEIN, SERUM 5.9 g/dL (6.4-8.2); UREA NITROGEN, BLOOD 19 mg/dL (7-18)
[2024-08-16] MEDS: PANTOPRAZOLE 40 MG TABLET.DR PO SCH (07:54)
[2024-08-17] VITALS (10 sets, daily range): BP systolic 113–128; BP diastolic 72–80; TEMP 97.7–98.2; O2SAT 93–98
[2024-08-17 07:18] LABS: ALBUMIN 2.4 g/dL (3.4-5.0); BILIRUBIN,TOTAL 0.7 mg/dL (0.2-1.0); CALCIUM, SERUM 8.4 mg/dL (8.5-10.1); CREATININE 0.4 mg/dL (0.6-1.3); MAGNESIUM 2.8 mg/dL (1.8-2.4); PHOSPHORUS 2.9 mg/dL (2.5-4.9); TOTAL PROTEIN, SERUM 5.9 g/dL (6.4-8.2)
[2024-08-17 07:27] LABS: BASOPHILS % (AUTO) 0.1 % (0.0-2.0); HEMATOCRIT 35 % (39-51); HEMOGLOBIN 11.2 g/dL (13.5-17.5); LYMPHOCYTES # (AUTO) 0.3 K/uL (0.8-4.8); LYMPHOCYTES % (AUTO) 1.5 % (20.0-44.0); MEAN CORPUSCULAR HEMOGLOBIN 28 PG (26.0-33.0); MEAN CORPUSCULAR HGB CONC 32 g/dl (31.0-36.0); MEAN CORPUSCULAR VOLUME 85 fL (80-96); MONOCYTES # (AUTO) 0.7 K/uL (0.1-1.30); MONOCYTES % (AUTO) 3.9 % (2.0-12.0); NEUTROPHILS # (AUTO) 16.1 K/uL (1.8-8.9); NEUTROPHILS % (AUTO) 94.5 % (43.0-81.0); PLATELET COUNT (AUTO) 285 K/uL (150-450); RED BLOOD CELL COUNT(AUTO) 4.09 MIL/uL (4.5-6.0); RED CELL DISTRIBUTION WIDTH 15.9 % (11.5-15.0)
[2024-08-18] VITALS (7 sets, daily range): BP systolic 102–136; BP diastolic 63–82; TEMP 97.9–98.4; O2SAT 94–97
[2024-08-18 06:44] LABS: HEMATOCRIT 34 % (39-51); HEMOGLOBIN 11.1 g/dL (13.5-17.5); LYMPHOCYTES # (AUTO) 0.2 K/uL (0.8-4.8); LYMPHOCYTES % (AUTO) 1.6 % (20.0-44.0); MEAN CORPUSCULAR HEMOGLOBIN 28 PG (26.0-33.0); MEAN CORPUSCULAR HGB CONC 32 g/dl (31.0-36.0); MEAN CORPUSCULAR VOLUME 86 fL (80-96); MONOCYTES # (AUTO) 0.5 K/uL (0.1-1.30); NEUTROPHILS # (AUTO) 14.5 K/uL (1.8-8.9); NEUTROPHILS % (AUTO) 95.4 % (43.0-81.0); PLATELET COUNT (AUTO) 264 K/uL (150-450); RED BLOOD CELL COUNT(AUTO) 4.01 MIL/uL (4.5-6.0); WHITE BLOOD COUNT (AUTO) 15.2 K/uL (4.3-11.0)
[2024-08-18 07:00] LABS: ALBUMIN 2.6 g/dL (3.4-5.0); BILIRUBIN,TOTAL 0.7 mg/dL (0.2-1.0); CALCIUM, SERUM 8.6 mg/dL (8.5-10.1); CREATININE 0.4 mg/dL (0.6-1.3); MAGNESIUM 2.3 mg/dL (1.8-2.4); POTASSIUM 4.7 mmol/L (3.5-5.1); TOTAL PROTEIN, SERUM 6.1 g/dL (6.4-8.2)
[2024-08-18] MEDS: methylPREDNISolone SOD SUCC 40 MG/ML VIAL IV SCH (09:41)
[2024-08-18] MEDS: TRAMADOL HCL 50 MG TABLET PO ONE (15:13)
[2024-08-18] MEDS ORDERED: ENSURE ENLIVE 237 ML LIQUID (VANILLA) PO SCH (17:00)
== END 2024-08-18 15:35 | DRG 199 ==
LOC: ER 01:30 → TELE-TD 03:44 → TELE1 08-13 09:32 → MEDSG1 08-18 13:30
PROVIDERS: ADMIT Nurse Practitioner Acute Care
PROC: 0W9B30Z Drainage of Left Pleural Cavity with Drainage Device, Percutaneous Approach (ICD-10-PCS; principal; 2024-08-08)
DX: J93.9 Pneumothorax, unspecified (principal); E43 Unspecified severe protein-calorie malnutrition; J15.69 Pneumonia due to other Gram-negative bacteria; G92.8 Other toxic encephalopathy; J96.21 Acute and chronic respiratory failure with hypoxia; J96.22 Acute and chronic respiratory failure with hypercapnia; J44.0 Chronic obstructive pulmonary disease with (acute) lower respiratory infection; J44.1 Chronic obstructive pulmonary disease with (acute) exacerbation; R64 Cachexia; I48.20 Chronic atrial fibrillation, unspecified; Z68.1 Body mass index [BMI] 19.9 or less, adult; C34.92 Malignant neoplasm of unspecified part of left bronchus or lung; C34.91 Malignant neoplasm of unspecified part of right bronchus or lung; C79.9 Secondary malignant neoplasm of unspecified site; F03.90 Unspecified dementia, unspecified severity, without behavioral disturbance, psychotic disturbance, mood disturbance, and anxiety; K21.9 Gastro-esophageal reflux disease without esophagitis; D72.829 Elevated white blood cell count, unspecified; E88.09 Other disorders of plasma-protein metabolism, not elsewhere classified; I10 Essential (primary) hypertension; I25.10 Atherosclerotic heart disease of native coronary artery without angina pectoris; Z87.891 Personal history of nicotine dependence; Z88.0 Allergy status to penicillin; Z87.01 Personal history of pneumonia (recurrent); Z91.199 Patient's noncompliance with other medical treatment and regimen due to unspecified reason; Z20.822 Contact with and (suspected) exposure to COVID-19; E78.5 Hyperlipidemia, unspecified; N40.0 Benign prostatic hyperplasia without lower urinary tract symptoms; Z99.81 Dependence on supplemental oxygen; L89.156 Pressure-induced deep tissue damage of sacral region; J93.82 Other air leak; K40.90 Unilateral inguinal hernia, without obstruction or gangrene, not specified as recurrent
CPT/HCPCS: 36415; 36600; 71045-TC; 71250-TC; 80048-TC; 80053-TC; 80076-TC; 81001; 82803-TC; 82962-TC; 83605-TC; 83735-TC; 84100-TC; 84484-TC; 85025-TC; 85730-TC; 87040-TC; 87081-TC; 87086-TC; 92526; 92611-TC; 94761-TC; 94762-TC; 94799-TC; 97110-TC; 97530-TC; 97535-TC; A4223; G0378; J0456; J1650; J1956; J2185; J2470; J2919; J3370; J3475; J7030; J7060

== ENCOUNTER 2024-10-28 23:13 | Emergency (ER) | payer MEDICARE, OTHER ==
[~2024-10-28] VITALS: Ht 162.6 cm; Wt 72.6 kg
[2024-10-28] MEDS: IV NS 0.9% 1,000 ML BAG IV ONE (00:05)
[2024-10-28] MEDS: VANCOMYCIN 1 GM in IV D5W 250 ML IV ONE (00:05)
[~2024-10-28 23:13] MED LIST changes: -AMIN30LI66 PO; -ASCO500T10 PO; +BUDE0.5A4 NEB; -CALC-261 PO; +CALC-903 PO; -ERGO500093 PO; -FLUT1BLS IH; -FURO40TA5 PO; -HYDR-500 PO; -LUBI24CA5 PO; -MORP15TA PO; -MORP30TA PO; -MULT-213 PO; -NEBI5TAB8 PO; -OLOP2.5D6 LEFTEYE; -PANT40TA2 PO; -PRED5TAB PO; -SPIR25TA6 PO; -TRAM50TA2 PO; -ZINC220C6 PO
[2024-10-28] MEDS ORDERED: EPINEPHRINE (1:10,000) SYRINGE 1 MG/10 ML DISP.SYRIN IVP ONE (23:16)
[2024-10-28] MEDS: ALBUTEROL FS 2.5 MG/3 ML VIAL.NEB CONTNEB ONE (23:23)
[2024-10-28] MEDS: IPRATROPIUM NEB FS 0.5 MG/2.5 ML AMPUL.NEB NEB ONE (23:23)
[2024-10-28 23:24] VITALS: O2SAT 100
[2024-10-28] MEDS ORDERED: IPRATROPIUM NEB FS 0.5 MG/2.5 ML AMPUL.NEB ONE (23:29)
[2024-10-28] MEDS ORDERED: ALBUTEROL FS 2.5 MG/3 ML VIAL.NEB ONE (23:29)
[2024-10-28] MEDS: Magnesium 1GM/D5W 100ML PREMIX 200 ML IV ONE (23:30)
[2024-10-28] MEDS: AZITHROMYCIN 500 MG in IV D5W 250 ML IV ONE (23:30)
[2024-10-28 23:34] VITALS: O2SAT 100
[2024-10-28 23:39] LABS: BASOPHILS % (AUTO) 0.2 % (0.0-2.0); HEMATOCRIT 37 % (39-51); HEMOGLOBIN 11.6 g/dL (13.5-17.5); LYMPHOCYTES # (AUTO) 0.4 K/uL (0.8-4.8); LYMPHOCYTES % (AUTO) 2.2 % (20.0-44.0); MEAN CORPUSCULAR HEMOGLOBIN 28 PG (26.0-33.0); MEAN CORPUSCULAR HGB CONC 32 g/dl (31.0-36.0); MEAN CORPUSCULAR VOLUME 89 fL (80-96); MONOCYTES # (AUTO) 1.3 K/uL (0.1-1.30); MONOCYTES % (AUTO) 6.6 % (2.0-12.0); NEUTROPHILS # (AUTO) 17.6 K/uL (1.8-8.9); PLATELET COUNT (AUTO) 360 K/uL (150-450); RED BLOOD CELL COUNT(AUTO) 4.15 MIL/uL (4.5-6.0); RED CELL DISTRIBUTION WIDTH 14.7 % (11.5-15.0); WHITE BLOOD COUNT (AUTO) 19.4 K/uL (4.3-11.0)
[2024-10-28] MEDS ORDERED: PANT40TA2 PO (23:48)
[2024-10-28] MEDS ORDERED: DONE5TAB7 PO (23:48)
[2024-10-28] MEDS ORDERED: CALC-1310 PO (23:48)
[2024-10-28] MEDS ORDERED: METO25TA6 PO (23:48)
[2024-10-28 23:49] LABS: INR 1.01 (0.91-1.10); PARTIAL THROMBOPLASTIN TIME 26.5 SEC (24.3-34.3); PROTHROMBIN TIME 10.7 SECS (9.2-11.1)
[2024-10-28 23:53] LABS: ALANINE AMINOTRANSFERASE 13 U/L (12-78); ALBUMIN 2.8 g/dL (3.4-5.0); ALKALINE PHOSPHATASE 103 U/L (46-116); ASPARTATE AMINOTRANSFERASE 39 U/L (15-37); BILIRUBIN,DIRECT 0.4 mg/dL (0.0-0.2); BILIRUBIN,TOTAL 1.1 mg/dL (0.2-1.0); CALCIUM, SERUM 9.3 mg/dL (8.5-10.1); CHLORIDE 91 mmol/L (98-107); CREATININE 0.6 mg/dL (0.6-1.3); GLUCOSE 174 mg/dL (74-106); POTASSIUM 4.6 mmol/L (3.5-5.1); SODIUM SERUM 139 mmol/L (136-145); TOTAL PROTEIN, SERUM 8.4 g/dL (6.4-8.2); UREA NITROGEN, BLOOD 14 mg/dL (7-18)
[2024-10-28 23:55] LABS: CARBON DIOXIDE 45 mmol/L (21-32)
[2024-10-28 23:56] LABS: LACTIC ACID 2.7 mmol/L (0.4-2.0)
[2024-10-28] MEDS ORDERED: MEROPENEM 1 G VIAL IV ONE (23:56)
[2024-10-28] MEDS ORDERED: methylPREDNISolone SOD SUCC 125 MG/2ML VIAL ONE (23:56)
[2024-10-29] MEDS: methylPREDNISolone SOD SUCC 125 MG/2ML VIAL IV ONE (00:03)
[2024-10-29] MEDS: MEROPENEM 1 G in IV NS 0.9% 100 ML IV ONE (00:03)
[2024-10-29] MEDS ORDERED: VANCOMYCIN 1 GM /D5W 250 ML PB IV ONE (00:05)
[2024-10-29] MEDS ORDERED: Magnesium 1GM/D5W 100ML PREMIX 200 ML IV ONE (00:05)
[2024-10-29 03:00] VITALS: BP 0/0; TEMP 97; O2SAT 0
[2024-10-29 06:45] LABS: ABG BASE EXCESS 7.7 mmol/L (-2.0-3.0); ABG PCO2 141.8 mmHg (35.0-48.0); ABG PH 7.087 (7.350-7.450); ABG TOTAL HEMOGLOBIN 11.9 G/dL (13.5-17.5); COHb 0.2 % (0.5-1.5); MetHb 0.1 % (0.0-1.5); O2Hb 96.7 % (94.0-97.0); SITE, ABG RIGHT RADIAL
== END 2024-10-29 03:04 ==
LOC: ER 23:15
DX: J96.02 Acute respiratory failure with hypercapnia (principal); I10 Essential (primary) hypertension; E11.9 Type 2 diabetes mellitus without complications; F03.90 Unspecified dementia, unspecified severity, without behavioral disturbance, psychotic disturbance, mood disturbance, and anxiety; J44.9 Chronic obstructive pulmonary disease, unspecified; Z79.82 Long term (current) use of aspirin; Z79.899 Other long term (current) drug therapy; Z85.118 Personal history of other malignant neoplasm of bronchus and lung; Z88.0 Allergy status to penicillin; Z20.822 Contact with and (suspected) exposure to COVID-19
CPT/HCPCS: 99291; 96365; 96361; 93005; 87804 ×2; 71045; 84145; 85025; 80048; 87040 ×2; 83605; 80076; 36415; 84484; 85730; 87081; 83880; 94640; 87426; 32551; 92950 ×2; 31500; 96375; 82803; 36600; J0171; J3490 ×2; J0330; J3370 ×2; J2185 ×2; J3475; J2919; J7060